=== PATIENT | female | born 1975 | race African-American/Black ===

== ENCOUNTER 2022-09-25 03:33 | Inpatient (IN) | payer OTHER, MEDICAID ==
[~2022-09-25] VITALS: Ht 165.1 cm; Wt 85.7 kg
[2022-09-25] VITALS (35 sets, daily range): BP systolic 88–171; BP diastolic 17–87
[2022-09-25] MEDS ORDERED: METOPROLOL TARTRATE 5MG/5ML VIAL IV ONE (04:00)
[2022-09-25] MEDS ORDERED: SODIUM CHLORIDE 0.9% 1,000 ML IV ONE ×2 (04:00→07:00)
[2022-09-25] MEDS ORDERED: ADENOSINE 3 MG/ML 2ML VIAL IV ONE ×2 (04:00)
[2022-09-25] MEDS: SODIUM CHLORIDE 0.9% 1,000 ML IV ONE ×2 (04:20→05:26)
[2022-09-25 04:53] LABS: BASOPHILS % 0.7 % (0.0-2.0); HEMATOCRIT. 43.4 % (36.0-48.0); HEMOGLOBIN. 13.4 g/dL (12.0-16.0); LYMPHOCYTES % 8.2 % (20.0-50.0); MEAN CORPUSCULAR HEMOGLOBIN 27.6 pg (28.0-32.0); MEAN CORPUSCULAR VOLUME 89.3 fL (81.0-99.0); MEAN PLATELET VOLUME 7.7 fl (7.4-10.4); MONOCYTES % 6.8 % (2.0-8.0); NEUTROPHILS % 84.3 % (40.0-76.0); PLATELET 983 x1000/uL (130-400); RED BLOOD CELL COUNT 4.87 mill/uL (4.2-5.4); RED CELL DISTRIBUTION WIDTH 15.1 % (11.6-14.6)
[2022-09-25 05:05] LABS: CHLORIDE 96 mEq/L (98-107)
[2022-09-25 05:08] LABS: D-DIMER 15.03 mg/L FEU (<0.50); PARTIAL THROMBOPLASTIN TIME 31.3 sec (23.4-31.0); PROTHROMBIN TIME 10.7 sec (9.6-11.0)
[2022-09-25 05:18] LABS: ETHANOL BLOOD < 10 mg/dL
[2022-09-25 05:20] LABS: HCG SCREEN NEGATIVE
[2022-09-25] MEDS ORDERED: CEFTRIAXONE 1GM PREMIX 50 ML IV ONE (05:30)
[2022-09-25 06:27] LABS: *AMPHETAMINES SCREEN URINE NEGATIVE (NEGATIVE); *BARBITURATES SCREEN URINE NEGATIVE (NEGATIVE); *BENZODIAZEPINES SCREEN URINE NEGATIVE (NEGATIVE); *COCAINE SCREEN URINE NEGATIVE (NEGATIVE); CANNABINOID URINE SCREEN NEGATIVE (NEGATIVE); METHADONE URINE SCREEN NEGATIVE (NEGATIVE); OPIATES URINE SCREEN NEGATIVE (NEGATIVE); PHENCYCLIDINE URINE SCREEN NEGATIVE (NEGATIVE)
[2022-09-25 06:30] LABS: BG BASE EXCESS -23.8 mmol/L (-2.0-2.0); BG CARBOXYHEMOGLOBIN 0.1 % (0.5-1.5); BG DEOXYHEMOGLOBIN 1.5 % (0.0-5.0); BG FRACTION INSPIRED OXYGEN 36; BG HCO3 ACT 3.2 mmol/L (22.0-26.0); BG METHEMOGLOBIN 0.4 % (0.0-1.5); BG OXYGEN SATURATION 98.5 % (92.0-98.5); BG PO2 158.7 mmHg (75.0-100.0); BG SAMPLE SITE LEFT BRACHIAL; BG TOTAL HEMOGLOBIN 12.3 g/dL (12.0-18.0); BG VENT MODE NASAL CANNULA
[2022-09-25] MEDS ORDERED: DOCUSATE SODIUM 100MG CAPSULE PO PRN (06:45)
[2022-09-25] MEDS ORDERED: ACETAMINOPHEN 325MG TABLET PO PRN ×3 (06:45→20:00)
[2022-09-25] MEDS ORDERED: GUAIFENESIN 200MG/10ML SUGAR FREE UDC PO PRN (06:45)
[2022-09-25] MEDS ORDERED: MAGNESIUM/ALUMINUM HYDROXIDE/SIMETHICONE 30ML UDC PO PRN (06:45)
[2022-09-25] MEDS ORDERED: CLONIDINE 0.1MG TABLET PO PRN (06:45)
[2022-09-25] MEDS ORDERED: NITROGLYCERIN 0.4MG TABLET SL SL PRN (06:45)
[2022-09-25] MEDS ORDERED: ONDANSETRON HCL 4MG/2ML INJ IV PRN (06:45)
[2022-09-25] MEDS ORDERED: IPRATROPIUM/ALBUTEROL 0.5-3(2.5)MG/3ML NEB NEB PRN (06:45)
[2022-09-25] MEDS ORDERED: ZOLPIDEM TARTRATE 5MG TABLET PO PRN (06:45)
[2022-09-25] MEDS ORDERED: INSULIN LISPRO 100 UNITS/ML SUBCUT SCH (07:00)
[2022-09-25] MEDS ORDERED: KETOROLAC 15MG/ML VIAL IV PRN (07:00)
[2022-09-25] MEDS ORDERED: DEXTROSE 50% WATER 50ML SYRINGE IV PRN ×3 (07:00→07:15)
[2022-09-25] MEDS ORDERED: INSULIN REGULAR 100U/100ML PMX 100 ML IV SCH ×4 (07:00→12:35)
[2022-09-25] MEDS ORDERED: PIPERACILLIN/TAZ 3.375G PREMIX 50 ML IV SCH (07:00)
[2022-09-25 07:02] LABS: CLARITY URINE CLEAR (CLEAR); COLOR URINE YELLOW (YELLOW); KETONES URINE 4+ (NEGATIVE); LEUKOCYTE ESTERASE URINE NEGATIVE (NEGATIVE); NITRITE URINE NEGATIVE (NEGATIVE); OCCULT BLOOD URINE NEGATIVE (NEGATIVE); PROTEIN URINE 2+ (NEGATIVE); SPECIFIC GRAVITY URINE 1.023 (1.005-1.030); UROBILINOGEN URINE 0.2 E.U./dL (0.2-1.0)
[2022-09-25 07:28] LABS: T4 FREE 1.16 ng/dL (0.76-1.46)
[2022-09-25] MEDS ORDERED: SODIUM CHLORIDE 0.9% 1,000 ML IV SCH (08:00)
[2022-09-25] MEDS ORDERED: VANCOMYCIN 1G PREMIX 200 ML IV SCH ×3 (08:00→18:00)
[2022-09-25] MEDS ORDERED: DEXT 5%/LACTATED RINGERS 1,000 ML IV SCH (08:00)
[2022-09-25] MEDS ORDERED: PANTOPRAZOLE SODIUM 40 MG/VIAL IV SCH (09:00)
[2022-09-25] MEDS ORDERED: ENOXAPARIN 40MG/0.4ML SYR SUBCUT SCH (09:00)
[2022-09-25] MEDS ORDERED: SODIUM BICARBONATE 8.4% 1 MEQ/ML 50ML SYR IV NR (10:00)
[2022-09-25] MEDS ORDERED: BLOOD SUGAR DIAGNOSTIC STRIP TEST SCH (11:30)
[2022-09-25] MEDS ORDERED: LIDOCAINE HCL 1% 30ML VIAL (10MG/ML) ONE (12:33)
[2022-09-25] MEDS: PIPERACILLIN/TAZOBACTAM 3.375G in DEXT 5% WATER 50ML IV SCH ×3 (12:36→22:00)
[2022-09-25] MEDS: DEXT 5%/0.9% NACL KCL 20MEQ/L 1,000 ML IV SCH ×2 (12:36→18:27)
[2022-09-25] MEDS ORDERED: BUPIVACAINE HCL/PF 0.5% (5MG/ML) 10ML ONE (15:47)
[2022-09-25] MEDS ORDERED: SKIN ADHESIVE 0.7 GM EA TOP ONE (15:47)
[2022-09-25] MEDS ORDERED: LIDOCAINE HCL/EPINEPHRINE 1%-EPI 1:100,000 20 ML VIAL ONE (15:47)
[2022-09-25] MEDS ORDERED: POLYMYXIN B SULFATE 500000 UNITS/VIAL ONE (15:47)
[2022-09-25] MEDS ORDERED: THROMBIN (BOVINE) 5000 UNITS/VIAL TOP ONE (15:48)
[2022-09-25] MEDS ORDERED: CEFAZOLIN 1000MG PREMIX 50 ML IV PRN (16:00)
[2022-09-25 16:38] LABS: BASOPHILS % 0.5 % (0.0-2.0); HEMATOCRIT. 31.7 % (36.0-48.0); HEMOGLOBIN. 10.4 g/dL (12.0-16.0); LYMPHOCYTES % 9.8 % (20.0-50.0); MEAN CORPUSCULAR HEMOGLOBIN 27.3 pg (28.0-32.0); MEAN CORPUSCULAR VOLUME 83.5 fL (81.0-99.0); MEAN PLATELET VOLUME 7.4 fl (7.4-10.4); NEUTROPHILS % 76.7 % (40.0-76.0); PLATELET 747 x1000/uL (130-400); RED CELL DISTRIBUTION WIDTH 14.1 % (11.6-14.6)
[2022-09-25] MEDS ORDERED: SODIUM BICARBONATE 8.4% 1 MEQ/ML 50ML SYR IV ONE (16:43)
[2022-09-25] MEDS ORDERED: POTASSIUM CHLORIDE 40MEQ/20ML INJ IV ONE (16:43)
[2022-09-25] MEDS ORDERED: ALBUMIN HUMAN 25GM/100ML (25%) IV ONE (16:43)
[2022-09-25] MEDS ORDERED: BACITRACIN 15GM TUBE TOP ONE (16:48)
[2022-09-25 16:49] LABS: CHLORIDE 112 mEq/L (98-107)
[2022-09-25] MEDS ORDERED: EPINEPHRINE 5 MG in DEXT 5% WATER 245 ML IV PRN (17:00)
[2022-09-25] MEDS ORDERED: NOREPINEPHRINE 8 MG in DEXT 5% WATER 242 ML IV PRN (17:00)
[2022-09-25 17:01] LABS: CREATINE KINASE 37 IU/L (26-192); CREATINE KINASE MB FRACTION 1.8 ng/mL (0.5-3.6)
[2022-09-25 17:20] LABS: VITAMIN B12 SERUM 1580 pg/mL (211-911)
[2022-09-25] MEDS ORDERED: LOSA50TA3 MT (17:27)
[2022-09-25] MEDS ORDERED: METF-416 MT (17:27)
[2022-09-25] MEDS ORDERED: FAMO-135 MT (17:27)
[2022-09-25] MEDS ORDERED: EMPA25TA PO (17:27)
[2022-09-25] MEDS ORDERED: DEL NIDO ELECTROLYTE-S(PH 7.4) 1,000 ML IV SCH ×2 (17:45)
[2022-09-25] MEDS: VANCOMYCIN 1G PREMIX 200 ML IV SCH (18:27)
[2022-09-25] MEDS ORDERED: ROCURONIUM BROMIDE 10MG/ML VIAL 5ML IV ONE (18:57)
[2022-09-25] MEDS ORDERED: DEXAMETHASONE 4MG/ML 1ML VIAL ONE (19:49)
[2022-09-25] MEDS ORDERED: NEOSTIGMINE METHYLSULFATE 1MG/ML 10 ML VIAL ONE ×2 (19:49→20:09)
[2022-09-25] MEDS ORDERED: GLYCOPYRROLATE 0.2 MG/ML 2ML VIAL ONE ×3 (19:50→20:10)
[2022-09-25] MEDS ORDERED: OXYCODONE HCL/ACETAMINOPHEN 5/325MG TABLET PO PRN (20:00)
[2022-09-25] MEDS ORDERED: MORPHINE SULFATE 2 MG/ML CPJ (NOT FOR IM USE) IV PRN (20:00)
[2022-09-25] MEDS ORDERED: CALCIUM CHLORIDE 3,000 MG in DEXT 5% WATER 250 ML IV PRN (20:00)
[2022-09-25 20:46] LABS: BG BASE EXCESS -7.3 mmol/L (-2.0-2.0); BG CARBOXYHEMOGLOBIN 0.3 % (0.5-1.5); BG FRACTION INSPIRED OXYGEN 100; BG HCO3 ACT 14.4 mmol/L (22.0-26.0); BG METHEMOGLOBIN 0.3 % (0.0-1.5); BG OXYHEMOGLOBIN 98.4 % (94.0-97.0); BG PCO2 20.3 mmHg (35.0-45.0); BG PH 7.469 (7.350-7.450); BG PO2 179.8 mmHg (75.0-100.0); BG SAMPLE SITE ALINE; BG TOTAL HEMOGLOBIN 11.5 g/dL (12.0-18.0); BG VENT MODE MASK - NRB
[2022-09-25] MEDS: BLOOD SUGAR DIAGNOSTIC STRIP TEST SCH ×3 (21:00→23:29)
[2022-09-25 21:23] LABS: HEMATOCRIT 30.9 % (36.0-48.0); HEMOGLOBIN 10.5 g/dL (12.0-16.0); MEAN CORPUSCULAR HEMOGLOBIN 28.5 pg (28.0-32.0); MEAN CORPUSCULAR VOLUME 83.6 fL (81.0-99.0); PLATELET 625 x1000/uL (130-400); RED CELL DISTRIBUTION WIDTH 14.4 % (11.6-14.6)
[2022-09-25 21:30] LABS: PARTIAL THROMBOPLASTIN TIME 26.7 sec (23.4-31.0); PROTHROMBIN TIME 10.9 sec (9.6-11.0)
[2022-09-25 21:33] LABS: CHLORIDE 115 mEq/L (98-107)
[2022-09-25 21:39] LABS: CREATINE KINASE MB FRACTION 1.7 ng/mL (0.5-3.6)
[2022-09-25] MEDS: KETOROLAC 15MG/ML VIAL IV PRN (21:52)
[2022-09-25 21:57] LABS: HEPATITIS B SURFACE ANTIGEN NEGATIVE
[2022-09-25] MEDS ORDERED: DIGOXIN 500MCG/2ML AMP IV NR (23:15)
[2022-09-26] VITALS (99 sets, daily range): BP systolic 0–208; BP diastolic 0–87
[2022-09-26] MEDS ORDERED: DIGOXIN 500MCG/2ML AMP IV NR
[2022-09-26] MEDS: BLOOD SUGAR DIAGNOSTIC STRIP TEST SCH ×15 (00:01→21:14)
[2022-09-26] MEDS: DILTIAZEM HCL 125 MG in DEXTROSE 5% WATER 125 ML IV PRN ×2 (00:03→07:37)
[2022-09-26] MEDS: DEXT 5%/0.9% NACL KCL 20MEQ/L 1,000 ML IV SCH ×4 (00:39→21:29)
[2022-09-26 02:14] LABS: CHLORIDE 112 mEq/L (98-107)
[2022-09-26] MEDS: KETOROLAC 15MG/ML VIAL IV PRN (04:19)
[2022-09-26 07:12] LABS: HEMATOCRIT. 29.9 % (36.0-48.0); HEMOGLOBIN. 9.8 g/dL (12.0-16.0); MEAN CORPUSCULAR VOLUME 82.2 fL (81.0-99.0); MEAN PLATELET VOLUME 7.2 fl (7.4-10.4); PLATELET 574 x1000/uL (130-400); RED BLOOD CELL COUNT 3.64 mill/uL (4.2-5.4); RED CELL DISTRIBUTION WIDTH 14.2 % (11.6-14.6)
[2022-09-26] MEDS: PIPERACILLIN/TAZOBACTAM 3.375G in DEXT 5% WATER 50ML IV SCH ×3 (07:13→21:30)
[2022-09-26 07:33] LABS: CHLORIDE 113 mEq/L (98-107)
[2022-09-26 07:36] LABS: BG BASE EXCESS -5.6 mmol/L (-2.0-2.0); BG CARBOXYHEMOGLOBIN 0.2 % (0.5-1.5); BG DEOXYHEMOGLOBIN 2.1 % (0.0-5.0); BG HCO3 ACT 17.1 mmol/L (22.0-26.0); BG METHEMOGLOBIN 0.2 % (0.0-1.5); BG OXYGEN SATURATION 97.9 % (92.0-98.5); BG OXYHEMOGLOBIN 97.5 % (94.0-97.0); BG PCO2 25.9 mmHg (35.0-45.0); BG PH 7.438 (7.350-7.450); BG PO2 108.5 mmHg (75.0-100.0); BG SAMPLE SITE ALINE; BG TOTAL HEMOGLOBIN 12.2 g/dL (12.0-18.0); BG VENT MODE ROOM AIR
[2022-09-26 07:42] LABS: PHOSPHORUS 1.6 mg/dL (2.5-4.9)
[2022-09-26] MEDS: IPRATROPIUM/ALBUTEROL 0.5-3(2.5)MG/3ML NEB HHN SCH ×5 (07:55→19:51)
[2022-09-26 08:00] LABS: PLATELET ESTIMATE INCREASED
[2022-09-26] MEDS ORDERED: KCL 20MEQ/100ML PREMIX 100 ML IV SCH (08:00)
[2022-09-26] MEDS: BACITRACIN 15GM TUBE TOP SCH ×2 (08:57→17:00)
[2022-09-26] MEDS: DOCUSATE SODIUM 100MG CAPSULE PO SCH ×2 (08:57→17:22)
[2022-09-26] MEDS: FAMOTIDINE 20MG/2ML VIAL IV SCH (08:57)
[2022-09-26 10:38] LABS: HEMATOCRIT. 28.9 % (36.0-48.0); HEMOGLOBIN. 9.6 g/dL (12.0-16.0); MEAN CORPUSCULAR HEMOGLOBIN 27.2 pg (28.0-32.0); MEAN PLATELET VOLUME 7.1 fl (7.4-10.4); PLATELET 559 x1000/uL (130-400); RED BLOOD CELL COUNT 3.52 mill/uL (4.2-5.4); RED CELL DISTRIBUTION WIDTH 14.1 % (11.6-14.6)
[2022-09-26 11:06] LABS: CHLORIDE 114 mEq/L (98-107)
[2022-09-26 11:08] LABS: NUCLEATED RED BLOOD CELLS 1 /100 WBC; PLATELET ESTIMATE INCREASED
[2022-09-26] MEDS ORDERED: POTASSIUM PHOS,M-BASIC-D-BASIC 30 MMOL in DEXT 5% WATER 500 ML IV NR (12:00)
[2022-09-26] MEDS: VANCOMYCIN 1G PREMIX 200 ML IV SCH (12:26)
[2022-09-26] MEDS ORDERED: INSULIN GLARGINE 100 UNITS/ML SUBCUT SCH (13:45)
[2022-09-26] MEDS ORDERED: INSULIN GLARGINE 100 UNITS/ML SUBCUT ONE (13:45)
[2022-09-26] MEDS ORDERED: DEXTROSE 50% WATER 50ML SYRINGE IV PRN ×2 (13:45)
[2022-09-26] MEDS: INSULIN LISPRO 100 UNITS/ML SUBCUT SCH ×4 (14:00→21:31)
[2022-09-26] MEDS ORDERED: BLOOD SUGAR DIAGNOSTIC STRIP TEST SCH ×3 (14:00→17:50)
[2022-09-26] MEDS ORDERED: INSULIN LISPRO 100 UNITS/ML SUBCUT SCH ×2 (17:50→18:20)
[2022-09-27] VITALS (14 sets, daily range): BP systolic 114–143; BP diastolic 66–82
[2022-09-27] MEDS: IPRATROPIUM/ALBUTEROL 0.5-3(2.5)MG/3ML NEB HHN SCH ×3 (00:16→12:55)
[2022-09-27] MEDS: DEXT 5%/0.9% NACL KCL 20MEQ/L 1,000 ML IV SCH (03:52)
[2022-09-27] MEDS: VANCOMYCIN 1G PREMIX 200 ML IV SCH (05:10)
[2022-09-27] MEDS: PIPERACILLIN/TAZOBACTAM 3.375G in DEXT 5% WATER 50ML IV SCH ×3 (06:40→21:15)
[2022-09-27 06:55] LABS: BASOPHILS % 0.3 % (0.0-2.0); HEMATOCRIT. 31.8 % (36.0-48.0); HEMOGLOBIN. 10.1 g/dL (12.0-16.0); LYMPHOCYTES % 7.1 % (20.0-50.0); MEAN CORPUSCULAR HEMOGLOBIN 27.2 pg (28.0-32.0); MEAN CORPUSCULAR VOLUME 85.7 fL (81.0-99.0); MEAN PLATELET VOLUME 7.5 fl (7.4-10.4); MONOCYTES % 4.5 % (2.0-8.0); NEUTROPHILS % 88.1 % (40.0-76.0); PLATELET 503 x1000/uL (130-400); RED BLOOD CELL COUNT 3.71 mill/uL (4.2-5.4); RED CELL DISTRIBUTION WIDTH 14.2 % (11.6-14.6)
[2022-09-27] MEDS: BLOOD SUGAR DIAGNOSTIC STRIP TEST SCH ×4 (07:37→21:17)
[2022-09-27 07:38] LABS: CHLORIDE 113 mEq/L (98-107)
[2022-09-27 07:46] LABS: PHOSPHORUS 2.5 mg/dL (2.5-4.9)
[2022-09-27] MEDS: DOCUSATE SODIUM 100MG CAPSULE PO SCH ×3 (08:22→17:11)
[2022-09-27] MEDS: FAMOTIDINE 20MG/2ML VIAL IV SCH (08:22)
[2022-09-27] MEDS: INSULIN LISPRO 100 UNITS/ML SUBCUT SCH ×7 (08:23→21:17)
[2022-09-27] MEDS: BACITRACIN 15GM TUBE TOP SCH ×2 (09:00→17:00)
[2022-09-27] MEDS ORDERED: IPRATROPIUM BROMIDE (0.02%) 0.5MG/2.5ML NEB HHN PRN (15:00)
[2022-09-27] MEDS ORDERED: ALBUTEROL (0.083%) 2.5MG/3ML NEB HHN PRN (15:00)
[2022-09-27] MEDS: ALBUTEROL (0.083%) 2.5MG/3ML NEB HHN SCH ×3 (16:38→23:54)
[2022-09-27] MEDS: IPRATROPIUM BROMIDE (0.02%) 0.5MG/2.5ML NEB HHN SCH ×3 (16:38→23:54)
[2022-09-28] VITALS: BP 148/77
[2022-09-28] MEDS: VANCOMYCIN 1G PREMIX 200 ML IV SCH (00:17)
[2022-09-28 04:00] VITALS: BP 140/75
[2022-09-28] MEDS: IPRATROPIUM BROMIDE (0.02%) 0.5MG/2.5ML NEB HHN SCH ×3 (04:28→12:26)
[2022-09-28] MEDS: ALBUTEROL (0.083%) 2.5MG/3ML NEB HHN SCH ×3 (04:28→12:26)
[2022-09-28] MEDS: PIPERACILLIN/TAZOBACTAM 3.375G in DEXT 5% WATER 50ML IV SCH ×2 (06:51→13:20)
[2022-09-28] MEDS: INSULIN LISPRO 100 UNITS/ML SUBCUT SCH ×4 (06:52→13:18)
[2022-09-28] MEDS: BLOOD SUGAR DIAGNOSTIC STRIP TEST SCH ×2 (06:52→11:40)
[2022-09-28 07:14] LABS: BASOPHILS % 0.4 % (0.0-2.0); EOSINOPHILS % 0.3 % (0.0-5.0); HEMATOCRIT. 26.1 % (36.0-48.0); HEMOGLOBIN. 8.8 g/dL (12.0-16.0); LYMPHOCYTES % 22.5 % (20.0-50.0); MEAN CORPUSCULAR HEMOGLOBIN 28.2 pg (28.0-32.0); MEAN CORPUSCULAR VOLUME 83.2 fL (81.0-99.0); MEAN PLATELET VOLUME 7.4 fl (7.4-10.4); NEUTROPHILS % 69.8 % (40.0-76.0); PLATELET 446 x1000/uL (130-400); RED BLOOD CELL COUNT 3.13 mill/uL (4.2-5.4); RED CELL DISTRIBUTION WIDTH 14.1 % (11.6-14.6)
[2022-09-28 07:21] LABS: CHLORIDE 113 mEq/L (98-107)
[2022-09-28 08:00] VITALS: BP_SYST 134; BP_SYST 143; BP_DIAS 75; BP_DIAS 84
[2022-09-28] MEDS ORDERED: VANCOMYCIN 750MG PREMIX 150 ML IV SCH (09:00)
[2022-09-28] MEDS: FAMOTIDINE 20MG/2ML VIAL IV SCH (09:09)
[2022-09-28] MEDS: DOCUSATE SODIUM 100MG CAPSULE PO SCH (09:09)
[2022-09-28] MEDS: BACITRACIN 15GM TUBE TOP SCH (09:22)
[2022-09-28] MEDS ORDERED: INSU100I28 SQ (09:24)
[2022-09-28] MEDS ORDERED: INSLIS SUBCUT (09:24)
[2022-09-28] MEDS ORDERED: INSULIN GLARGINE 100 UNITS/ML SUBCUT SCH (10:00)
[2022-09-28 11:48] VITALS: BP 134/84
[2022-09-28 12:00] VITALS: BP 147/82
[2022-09-29] MEDS ORDERED: FAMOTIDINE 20MG TABLET PO SCH (09:00)
== END 2022-09-28 15:30 | disposition home or self-care (01) | DRG 853 ==
LOC: EDBD 03:33 → ER 03:33 → MICUSO 05:16 → EDBEDREQTM 05:20 → EDBEDREQ 05:20 → MICUSO 08:00 → CVICU 18:40 → 7EST 09-27 10:53
PROVIDERS: ADMIT Internal Medicine; ATTEND Internal Medicine
PROC: 0W9D00Z Drainage of Pericardial Cavity with Drainage Device, Open Approach (ICD-10-PCS; principal; 2022-09-25)
PROC: 02HV33Z Insertion of Infusion Device into Superior Vena Cava, Percutaneous Approach (ICD-10-PCS; 2022-09-25)
PROC: B548ZZA Ultrasonography of Superior Vena Cava, Guidance (ICD-10-PCS; 2022-09-25)
DX: A41.9 Sepsis, unspecified organism (principal); E11.10 Type 2 diabetes mellitus with ketoacidosis without coma; J96.01 Acute respiratory failure with hypoxia; E43 Unspecified severe protein-calorie malnutrition; E87.1 Hypo-osmolality and hyponatremia; I30.9 Acute pericarditis, unspecified; I31.4 Cardiac tamponade; I50.30 Unspecified diastolic (congestive) heart failure; D63.8 Anemia in other chronic diseases classified elsewhere; I11.0 Hypertensive heart disease with heart failure; Z20.822 Contact with and (suspected) exposure to COVID-19; E83.51 Hypocalcemia; Z60.2 Problems related to living alone; R65.20 Severe sepsis without septic shock; E86.0 Dehydration; I48.91 Unspecified atrial fibrillation; T50.995A Adverse effect of other drugs, medicaments and biological substances, initial encounter; Y92.89 Other specified places as the place of occurrence of the external cause; Z79.84 Long term (current) use of oral hypoglycemic drugs; Z79.899 Other long term (current) drug therapy; Z68.31 Body mass index [BMI] 31.0-31.9, adult; Z88.8 Allergy status to other drugs, medicaments and biological substances
CPT/HCPCS: 36415; 36573; 36600; 71045; 71275; 80048; 80053; 80061; 80202; 80305; 80320; 81003; 82010; 82375; 82550; 82553; 82607; 82746; 82805; 82962; 83036; 83540; 83550; 83605; 83735; 83880; 84100; 84145; 84439; 84443; 84484; 84703; 85025; 85027; 85347; 85379; 86038; 86705; 86709; 86803; 86850; 86900; 87070; 87075; 87116; 87210; 87340; 87426; 88108; 88305; 93005; 93306; 93970; 94640; 97162; 99291; C1725; C1729; J0153; J0690; J0696; J1100; J1160; J1815; J1885; J2270; J2543; J2710; J3370; J3480; J3490; J7030; J7060; L3908; P9047; G0480